=== PATIENT | male | born 1975 | race Caucasian/White ===

== ENCOUNTER 2019-04-15 02:47 | Emergency (ER) | payer OTHER ==
[~2019-04-15] VITALS: Ht 177.8 cm; Wt 97.5 kg
== END 2019-04-15 05:40 | disposition home or self-care (01) ==
LOC: ER 02:47
DX: R51 Headache (principal); F17.200 Nicotine dependence, unspecified, uncomplicated
CPT/HCPCS: 96372; 99283-25; J1200; J1885; J3030

== ENCOUNTER 2019-05-01 19:18 | Emergency (ER) | payer OTHER ==
[~2019-05-01] VITALS: Ht 177.8 cm; Wt 97.5 kg
[2019-05-01] MEDS ORDERED: Loperamide2 MG PO (19:52)
== END 2019-05-01 20:10 | disposition home or self-care (01) ==
LOC: ER 19:18
DX: J98.8 Other specified respiratory disorders (principal); R19.7 Diarrhea, unspecified; G43.909 Migraine, unspecified, not intractable, without status migrainosus; F17.200 Nicotine dependence, unspecified, uncomplicated
CPT/HCPCS: 99283

== ENCOUNTER 2020-09-08 07:37 | Emergency (ER) | payer OTHER ==
[~2020-09-08] VITALS: Ht 177.8 cm; Wt 95.2 kg
[~2020-09-08 07:37] MED LIST: Loperamide2 MG PO
== END 2020-09-08 08:37 | disposition home or self-care (01) ==
LOC: ER 07:37
DX: S61.200A Unspecified open wound of right index finger without damage to nail, initial encounter (principal); F17.200 Nicotine dependence, unspecified, uncomplicated; X58.XXXA Exposure to other specified factors, initial encounter
CPT/HCPCS: 12001; 99282-25